=== PATIENT | female | born 1960 | race Caucasian/White ===

== ENCOUNTER 2021-10-29 13:34 | Inpatient (IN) | payer BC ==
[~2021-10-29] VITALS: Ht 160 cm; Wt 100.9 kg
[~2021-10-29 13:34] MED LIST: ASPIRIN 32325 MG/TAB PO; METOPROLOL25 MG PO; PLAVIX 75MG TAB75 MG PO; SIMVASTATIN40 MG PO; VASOTEC2.5 MG PO; [UNRECOGNIZED DRUG - OTHER] PO
[2021-10-29 14:41] LABS: BASO # 0.1 K/mm3 (0.0-0.2); BASO % 0.6 % (0.0-2.0); EOS # 0.1 K/mm3 (0.0-0.7); EOS % 1.5 % (0.0-4.0); GRAN # 5.3 K/mm3 (1.4-6.5); GRAN % 65.6 % (42.2-75.2); HEMATOCRIT 44.8 % (37.0-47.0); HEMOGLOBIN 15.8 g/dl (12.5-16.0); LYMPH % 24.3 % (20.0-51.0); MEAN CELL VOLUME 85 fl (80.0-100.0); MEAN CORPUSCULAR HEMOGLOBIN 30 pg (27-31); MEAN CORPUSCULAR HGB CONC 35 g/dl (33.0-37.0); MEAN PLATELET VOLUME 10.4 fl (7.4-10.4); MONO # 0.6 K/mm3 (0.1-0.6); MONO % 7.6 % (1.7-9.3); PLATELET COUNT 247 K/mm3 (130-400); RED BLOOD COUNT 5.26 M/mm3 (4.10-5.30); REDCELL DISTRIBUTION WIDTH-CV 12.8 % (11.5-14.5)
[2021-10-29 14:54] LABS: ALANINE AMINOTRANSFERASE 42 U/L (0-55); ALBUMIN 3.8 gm/dL (3.4-4.8); ALKALINE PHOSPHATASE 103 U/L (40-150); ANION GAP 14 mmol/L (7-16); AST,SGOT 20 U/L (5-34); BILIRUBIN,TOTAL 0.3 mg/dL (0.2-1.2); BLOOD UREA NITROGEN 20 mg/dL (10-20); CALCIUM 9.7 mg/dL (8.4-10.2); CARBON DIOXIDE 21 mmol/L (23-31); CHLORIDE 100 mmol/L (98-107); CREATININE, serum 1.06 mg/dL (0.57-1.11); POTASSIUM 4.2 mmol/L (3.5-4.5); SODIUM 135 mmol/L (136-145); TOTAL PROTEIN 6.9 gm/dL (6.2-8.1)
[2021-10-29 15:02] LABS: GLUCOSE 536 mg/dL (70-99); TROPONIN-I < 0.010 ng/mL (0.00-0.033)
[2021-10-29] MEDS ORDERED: CLARITIN 1010 MG/TAB PO (19:55)
--- NOTE | 2021-10-29 22:55 | NUR ---
PT ARRIVED VIA W/C FROM ED TO ROOM 307. PT IS ALERT AND ORIENTED X4. HAS INT TO RFA, FLUSHES WELL. UP AD LENNIE IN BATHROOM. PT REPORTS BEING HUNGRY.
[2021-10-29] MEDS ORDERED: ADVIL200 MG PO (23:08)
--- NOTE | 2021-10-29 23:30 | NUR ---
PT SR=[id number], GIVEN ORDERED NOVOLOG 5 UNITS SQ AT THIS TIME. SANDWICH BOX GIVEN TO PT. SHE DENIES CHEST PAIN, IS NEWLY DIAGNOSED WITH DM.
[2021-10-30] VITALS (7 sets, daily range): BP systolic 86–153; BP diastolic 37–83; PULSE 76–84; TEMP 97.6–98.5
--- NOTE | 2021-10-30 03:57 | NUR ---
MEDICATED WITH ES TYLENOL 1000MG PO FOR HEADACHE.
[2021-10-30 05:59] LABS: BASO % 0.4 % (0.0-2.0); EOS # 0.2 K/mm3 (0.0-0.7); EOS % 2.2 % (0.0-4.0); GRAN % 60.2 % (42.2-75.2); HEMOGLOBIN 14.6 g/dl (12.5-16.0); LYMPH # 2.3 K/mm3 (1.2-3.4); LYMPH % 27.9 % (20.0-51.0); MEAN CELL VOLUME 88 fl (80.0-100.0); MEAN CORPUSCULAR HEMOGLOBIN 30 pg (27-31); MEAN CORPUSCULAR HGB CONC 34 g/dl (33.0-37.0); MEAN PLATELET VOLUME 10.5 fl (7.4-10.4); MONO # 0.7 K/mm3 (0.1-0.6); MONO % 8.7 % (1.7-9.3); PLATELET COUNT 212 K/mm3 (130-400); RED BLOOD COUNT 4.87 M/mm3 (4.10-5.30); REDCELL DISTRIBUTION WIDTH-CV 12.9 % (11.5-14.5)
--- NOTE | 2021-10-30 06:00 | NUR ---
REPORTS HEADACHE WAS RELIEVED WITH TYLENOL.
[2021-10-30 06:13] LABS: CALCIUM 8.7 mg/dL (8.4-10.2); CHOLESTEROL RISK RATIO 6.6; CREATININE, serum 0.74 mg/dL (0.57-1.11)
--- NOTE | 2021-10-30 09:45 | NUR ---
PT ALERT AND ORIENTED IN ROOM. EDUCATION PROVIDED ON MEDICATIONS AND UPDATED PLAN OF CARE. ASSESSMENT COMPLETE TO BEST OF ABILITIES, NO SIGNIFICANT ALTERATIONS NOTED AT THIS TIME. AM MEDICATIONS PASSED. PT CALL LIGHT WIHTIN KIM.
--- NOTE | 2021-10-30 11:42 | NUR ---
binding bench worker met with patient and her spouse, Jose at bedside with patient's verbal consent. Patient informs she has had no primary care physician for the past 5 years because she has had no healthare coverage until she recently became eligible at her part-time employment. Her spouse has set her an appointment with [facility] physician, Dr. Bora Tong to establish primary care. Her pharmacy is [facility], and she has not previously been taking medication but does not anticipate any difficulties in financing based on history. She is educated on contact to her healthcare customer service number to inquire about benefits, including inpatient hospitalization and medications coverage. She informs she has just not yet downloaded the plan information from online. She is informed of hospital patient financial reporting consultant as needed for concerns about services not covered and encouraged to contact social work for questions/needs. She informs of plan to see a door cutter to determine her plan of care; she hopes to discharge to home to go to work on Monday as possible. She is indendepent in her ADls at home, and she utilizes no DME. Her spouse navigates the basement stairs to do laundry. Patient expresses interest in completing a DPOA, and this social sciences department chair faciltates her completion, identifying her spouse at her DPOA. Her adult son Jake is secondary. Patient is given the original and copies. A copy is placed in patient medical record for filing. Her spouse accepts a form, to complete later, and submit to his primar care physician, as well. Patient and spouse anticipate no discharge needs at this time. Discharge plan: Discharge to home with spouse.
[2021-10-30 11:59] LABS: PARTIAL THROMBOPLASTIN TIME 34.9 SECONDS (26.0-37.0)
--- NOTE | 2021-10-30 18:25 | NUR ---
PT CONTINUING ON PLAN OF CARE. BLOOD GLUCOSE CHECKED PER ORDERS AND MANAGED WITH INSULIN PER ORDERS. PT UPDATED WITH PLAN OF CARE THROUGHOUT DAY, ANSWERED QUESTIONS TO BEST OF ABILITY. NO SIGNIFICANT CHANGES NOTED IN PT STATUS AT THIS TIME.
--- NOTE | 2021-10-30 22:47 | NUR ---
Patient alert and oriented. Patient denies chest pain or SOB. Denies N/V, headache, or dizziness. Patient currently on heparin drip 9ml/hr. Next Hep xa lab draw at 01:30 am. All scheduled meds given per OCT. Educated patient on s/s of hyperglycemia and hypoglycemia. Patient verbalized understanding. Call light in reach. Will continue to monitor.
--- NOTE | 2021-10-31 01:50 | NUR ---
Hepxa level 0.27 at 1:45 am. No changes for current rate. Next Hepxa lab check at 7:45 am.
[2021-10-31 03:41] VITALS: BP 92/53; PULSE 74; TEMP 97.5
[2021-10-31 07:43] LABS: BASO % 0.4 % (0.0-2.0); EOS # 0.2 K/mm3 (0.0-0.7); EOS % 2.6 % (0.0-4.0); GRAN % 55.2 % (42.2-75.2); HEMATOCRIT 45.5 % (37.0-47.0); HEMOGLOBIN 15.4 g/dl (12.5-16.0); LYMPH # 2.5 K/mm3 (1.2-3.4); LYMPH % 34.4 % (20.0-51.0); MEAN CELL VOLUME 87 fl (80.0-100.0); MEAN CORPUSCULAR HEMOGLOBIN 30 pg (27-31); MEAN CORPUSCULAR HGB CONC 34 g/dl (33.0-37.0); MEAN PLATELET VOLUME 10.1 fl (7.4-10.4); MONO # 0.5 K/mm3 (0.1-0.6); MONO % 6.9 % (1.7-9.3); PLATELET COUNT 244 K/mm3 (130-400); RED BLOOD COUNT 5.21 M/mm3 (4.10-5.30); REDCELL DISTRIBUTION WIDTH-CV 13.2 % (11.5-14.5)
[2021-10-31 07:55] LABS: CALCIUM 8.9 mg/dL (8.4-10.2); CREATININE, serum 0.79 mg/dL (0.57-1.11); POTASSIUM 4.3 mmol/L (3.5-4.5)
[2021-10-31 08:16] VITALS: BP 123/65; PULSE 76; TEMP 98
[2021-10-31 11:58] VITALS: BP 134/70; PULSE 68; TEMP 97.9
[2021-10-31 16:42] VITALS: BP 123/64; PULSE 77; TEMP 97.5
[2021-10-31 20:52] VITALS: BP 123/54; PULSE 77; TEMP 98.8
[2021-10-31 23:46] VITALS: BP 115/59; PULSE 68; TEMP 97.9
[2021-11-01] VITALS (17 sets, daily range): BP systolic 92–132; BP diastolic 47–92; PULSE 72–87; TEMP 97.6–98.3
[2021-11-01 06:02] LABS: HEMATOCRIT 42.4 % (37.0-47.0); HEMOGLOBIN 14.3 g/dl (12.5-16.0); MEAN CELL VOLUME 87 fl (80.0-100.0); MEAN CORPUSCULAR HEMOGLOBIN 29 pg (27-31); MEAN CORPUSCULAR HGB CONC 34 g/dl (33.0-37.0); MEAN PLATELET VOLUME 10.3 fl (7.4-10.4); PLATELET COUNT 210 K/mm3 (130-400); RED BLOOD COUNT 4.87 M/mm3 (4.10-5.30); REDCELL DISTRIBUTION WIDTH-CV 13.2 % (11.5-14.5)
--- NOTE | 2021-11-01 09:16 | NUR ---
Initial visit; Patient thanked Phonograph Needle Tip Maker for looking in on her and offering God's blessings and keeping her in Phon[employer] Maker's prayers.
--- NOTE | 2021-11-01 09:45 | NUR ---
PT RESTING IN BED ON ROOM AIR WITH AT BEDSIDE. PT HAS BEEN NPO SINCE 9PM LAST NIGHT. PT STATES THAT SHE IS HAVING NO PAIN AND DOES NOT NEED ANYTHING RIGHT NOW. "JUST WAITING TO GET THE HEART CATH." HEPARIN DRIP IS GOING INTO RIGHT FOREARM AT 9ML/HR. CALL LIGHT IS WITHIN REACH.
--- NOTE | 2021-11-01 13:38 | NUR ---
SEE MERGE FOR ALL MEDICATION ADMINISTRATION TIMES/DOSAGES AND INTRA/POST PROCEDURE SEDATION ASSESSMENTS. PRE PROCEDURE ASSESSMENT COMPLETED IN ROOM.
--- NOTE | 2021-11-01 18:24 | NUR ---
PT SITTING UP IN BED AND STATES THAT SHE IS HAVING A HEADACHE, REQUESTING TYLENOL. WAS GIVEN TO PT. NO OTHER PAIN AT THIS TIME. PT ON ROOM AIR. PT STILL HAVE TR BAND ON RIGHT RADIAL. NO BLEEDING NOTED. PT ON ROOM AIR. PT REQUESTED THAT FLUIDS NOT BE HOOKED UP UNTIL AFTER SHE ATE DINNER. FLUIDS WERE HOOKED UP AND STARTED. 1/2 NS AT 100ML/HR. AT BEDSIDE. NO OTHER NEEDS WERE VOICED AT THIS TIME. CALL LIGHT IS WITHIN REACH.
[2021-11-02 00:07] VITALS: BP 105/61; PULSE 75; TEMP 97.9
[2021-11-02 03:46] VITALS: BP 105/49; PULSE 76; TEMP 97.9
[2021-11-02 03:48] VITALS: BP 105/49; PULSE 76; TEMP 97.9
--- NOTE | 2021-11-02 04:47 | NUR ---
NO NEW ISSUES NOTED OR REPORTED BY PATIENT THROUGHOUT THE NIGHT. RIGHT RADIAL SITE HAS A BAND AID IN PLACE THAT IS CLEAN, DRY AND INTACT.
[2021-11-02 06:35] LABS: BASO % 0.4 % (0.0-2.0); EOS # 0.2 K/mm3 (0.0-0.7); EOS % 2.8 % (0.0-4.0); GRAN # 4.3 K/mm3 (1.4-6.5); GRAN % 59.9 % (42.2-75.2); HEMATOCRIT 42.9 % (37.0-47.0); HEMOGLOBIN 14.4 g/dl (12.5-16.0); LYMPH # 1.9 K/mm3 (1.2-3.4); LYMPH % 26.5 % (20.0-51.0); MEAN CELL VOLUME 90 fl (80.0-100.0); MEAN CORPUSCULAR HEMOGLOBIN 30 pg (27-31); MEAN CORPUSCULAR HGB CONC 34 g/dl (33.0-37.0); MEAN PLATELET VOLUME 10.7 fl (7.4-10.4); MONO # 0.7 K/mm3 (0.1-0.6); MONO % 9.8 % (1.7-9.3); PLATELET COUNT 206 K/mm3 (130-400); RED BLOOD COUNT 4.75 M/mm3 (4.10-5.30); REDCELL DISTRIBUTION WIDTH-CV 13.2 % (11.5-14.5)
[2021-11-02 07:05] LABS: CALCIUM 8.9 mg/dL (8.4-10.2); CREATININE, serum 0.83 mg/dL (0.57-1.11)
--- NOTE | 2021-11-02 08:10 | NUR ---
PT LAYING IN BED WITH ECHO BEING DONE AT BEDSIDE. PT STATES THAT SHE IS NOT HAVING ANY PAIN. RIGHT RADIAL PUNCTURE SITE IS CLEAN AND DRY. HAS A BANDAID OVER IT. ECHO WAS COMPLETED AND [facility] ARRIVED. ASSISTED PT TO SIT UP ON COUCH AND EAT BEAKFAST. PT STATES NO OTHER NEEDS AT THIS TIME.
[2021-11-02 08:21] VITALS: BP 142/70; PULSE 73; TEMP 97.6
[2021-11-02] MEDS ORDERED: BRILINTA90 MG PO (08:36)
[2021-11-02] MEDS ORDERED: PRINIVIL10 MG PO (08:37)
[2021-11-02] MEDS ORDERED: ASPIRIN E.C. 8181 MG PO (08:37)
[2021-11-02] MEDS ORDERED: COREG 3.123.125 MG/T PO (08:37)
[2021-11-02] MEDS ORDERED: LIPITOR 80MG80 MG PO (08:37)
[2021-11-02] MEDS ORDERED: GLUCOSE TEST ST1 DEV MC (08:46)
[2021-11-02] MEDS ORDERED: FREESTYLE PREC1 EAC5 MC (08:46)
[2021-11-02] MEDS ORDERED: LANCETS MC (08:46)
[2021-11-02] MEDS ORDERED: BD ALCOHOL1 SWA MC (08:46)
[2021-11-02] MEDS ORDERED: GLUCOPHAGE500 MG/TAB PO (08:49)
[2021-11-02 11:22] VITALS: BP 121/63; PULSE 77; TEMP 98
--- NOTE | 2021-11-02 12:30 | NUR ---
PT WAS EDUCATED ON BS CHECKS. PT WAS ABLE TO DEMONSTRATE CORRECT USAGE AND TECHNIQUE. IV AND TELE WAS REMOVED.
== END 2021-11-02 12:40 | disposition home or self-care (01) | DRG 247 ==
LOC: COL.ER 13:34 → MEDICAL 18:30
PROVIDERS: Internal Medicine Adult Congenital Heart Disease; Physician Assistant; Student in an Organized Health Care Education/Training Program; ADMIT Internal Medicine
PROC: 027034Z Dilation of Coronary Artery, One Artery with Drug-eluting Intraluminal Device, Percutaneous Approach (ICD-10-PCS; principal; 2021-10-30)
PROC: 4A023N7 Measurement of Cardiac Sampling and Pressure, Left Heart, Percutaneous Approach (ICD-10-PCS; 2021-10-30)
PROC: B2111ZZ Fluoroscopy of Multiple Coronary Arteries using Low Osmolar Contrast (ICD-10-PCS; 2021-10-30)
DX: I25.110 Atherosclerotic heart disease of native coronary artery with unstable angina pectoris (principal); I10 Essential (primary) hypertension; E78.00 Pure hypercholesterolemia, unspecified; E11.65 Type 2 diabetes mellitus with hyperglycemia; J30.2 Other seasonal allergic rhinitis; Z95.5 Presence of coronary angioplasty implant and graft; Z79.82 Long term (current) use of aspirin
CPT/HCPCS: 99232-AI; 99233-AI; 99239; C1725; C1769; C1874; C1887; C9600; G0378; J0583; J1644; J1650; J1815; J2250; J3010; J7030; Q9967

== ENCOUNTER 2021-12-10 15:45 | Outpatient (RCR) | payer BC, OTHER ==
[~2021-12-10 15:45] MED LIST changes: +ADVIL200 MG PO; +ASPIRIN E.C. 8181 MG PO; +BD ALCOHOL1 SWA MC; +BRILINTA90 MG PO; +CLARITIN 1010 MG/TAB PO; +COREG 3.123.125 MG/T PO; +FREESTYLE PREC1 EAC5 MC; +GLUCOPHAGE500 MG/TAB PO; +GLUCOSE TEST ST1 DEV MC; +LANCETS MC; +LIPITOR 80MG80 MG PO; +PRINIVIL10 MG PO
== END 2021-12-11 | disposition home or self-care (01) ==
LOC: COL.CR
DX: Z48.812 Encounter for surgical aftercare following surgery on the circulatory system (principal); Z95.5 Presence of coronary angioplasty implant and graft

== ENCOUNTER 2021-12-31 14:44 | Outpatient (RCR) | payer BC | END 2022-01-11 | disposition home or self-care (01) | LOC: COL.CR | DX: Z48.812 Encounter for surgical aftercare following surgery on the circulatory system (principal); Z95.5 Presence of coronary angioplasty implant and graft ==

== ENCOUNTER 2022-02-09 14:23 | Outpatient (RCR) | payer BC | END 2022-02-10 | disposition home or self-care (01) | LOC: COL.CR | DX: Z48.812 Encounter for surgical aftercare following surgery on the circulatory system (principal); Z95.5 Presence of coronary angioplasty implant and graft ==

== ENCOUNTER 2022-02-11 15:36 | Outpatient (RCR) | payer BC | END 2022-02-16 15:02 | LOC: COL.CR 15:36 | DX: Z48.812 Encounter for surgical aftercare following surgery on the circulatory system (principal); Z95.5 Presence of coronary angioplasty implant and graft ==

== ENCOUNTER 2024-02-26 11:02 | Emergency (ER) | payer BC ==
[~2024-02-26] VITALS: Ht 160 cm; Wt 90.9 kg
[~2024-02-26 11:02] MED LIST changes: +CRESTOR 10MG10 MG PO
[2024-02-26 11:07] VITALS: TEMP 98.6
[2024-02-26 11:47] LABS: BASO # 0.1 K/mm3 (0.0-0.2); BASO % 0.5 % (0.0-2.0); EOS # 0.3 K/mm3 (0.0-0.7); EOS % 2.7 % (0.0-4.0); GRAN # 7.2 K/mm3 (1.4-6.5); GRAN % 72.9 % (42.2-75.2); HEMATOCRIT 45.7 % (37.0-47.0); HEMOGLOBIN 14.7 g/dl (12.5-16.0); LYMPH # 1.7 K/mm3 (1.2-3.4); LYMPH % 16.6 % (20.0-51.0); MEAN CELL VOLUME 92 fl (80.0-100.0); MEAN CORPUSCULAR HEMOGLOBIN 30 pg (27-31); MEAN CORPUSCULAR HGB CONC 32 g/dl (33.0-37.0); MONO # 0.7 K/mm3 (0.1-0.6); MONO % 6.8 % (1.7-9.3); PLATELET COUNT 320 K/mm3 (130-400); RED BLOOD COUNT 4.98 M/mm3 (4.10-5.30)
[2024-02-26 12:10] LABS: ALANINE AMINOTRANSFERASE 9 U/L (0-55); ALBUMIN 4.5 g/dL (3.4-4.8); ALKALINE PHOSPHATASE 85 U/L (40-150); ANION GAP 15 mmol/L (7-16); AST,SGOT 13 U/L (5-34); BILIRUBIN,TOTAL 0.5 mg/dL (0.2-1.2); BLOOD UREA NITROGEN 21 mg/dL (10-20); CALCIUM 10.2 mg/dL (8.4-10.2); CHLORIDE 106 mEq/L (98-107); CREATININE, serum 1.31 mg/dL (0.57-1.11); GLUCOSE 152 mg/dL (70-99); POTASSIUM 4.1 mEq/L (3.5-4.5); SODIUM 140 mEq/L (136-145); TOTAL PROTEIN 7.2 g/dl (6.2-8.1)
[2024-02-26 12:33] LABS: TROPONIN-I < 0.010 ng/mL (0.00-0.033)
[2024-02-26] MEDS ORDERED: Iohexol 300 - 100 ML VIAL IV ONE (12:42)
[2024-02-26] MEDS ORDERED: NS 100 ML IV SCH (12:43)
[2024-02-26 14:25] VITALS: BP 131/78; PULSE 90
== END 2024-02-26 14:25 | disposition home or self-care (01) ==
LOC: COL.ER 11:02
PROVIDERS: Family Medicine
DX: R06.00 Dyspnea, unspecified (principal)
CPT/HCPCS: Q9967